=== PATIENT | male | born 1950 | race Caucasian/White ===

== ENCOUNTER 2017-03-31 15:25 | Inpatient (IN) | payer OTHER ==
[~2017-03-31] VITALS: Ht 182.9 cm; Wt 116.6 kg
[~2017-03-31 15:25] MED LIST: CARDIZEM30 MG PO; COLACE100 MG PO; DELTASONE10 MG PO; DILANTIN100 MG PO; INDERAL10 MG PO; LASIX40 MG PO; Lantus 3 ml Solostar SC; Levothroid,Synthroid PO; PACERONE200 M1 PO; VANCOMYCIN100 MG/M1 IV; VITAMIN D1000 INTUN PO
[2017-03-31 16:43] LABS: MEAN PLAT.VOLUME 10.6 uM^3 (9.0-12.4); PLATELET COUNT 375 K/uL (156-360)
[2017-03-31 16:48] LABS: HEMATOCRIT 29.8 % (38.0-50.0); MCH 29.8 PG (29.0-34.0); MCHC 32.6 G/DL (30.0-36.0); MCV 91.7 FL (86-99); RBC DIS.WIDTH-CV 13.6 % (11.8-14.6); RBC DIS.WIDTH-SD 46.2 % (39-53); RED BLOOD COUNT 3.25 M/uL (4.00-5.50); WHITE BLOOD COUNT 41.5 K/uL (4.1-10.2)
[2017-03-31 16:50] LABS: CHLORIDE 105 mEq/L (99-109); POTASSIUM 5.8 mEq/L (3.7-5.4); SODIUM 133 mEq/L (136-147)
[2017-03-31 16:53] LABS: GLUCOSE 162 mg/dL (70-99)
[2017-03-31 16:54] LABS: ANION GAP 13 MEQ/L (2-14)
[2017-03-31 16:55] LABS: TOTAL BILIRUBIN 0.8 mg/dL (0.0-1.0)
[2017-03-31 16:56] LABS: ALKALINE PHOSPHATASE 310 IU/L (3-129); GFR ESTIMATE (CALCULATED) 29 mL/min/
[2017-03-31 16:57] LABS: UREA NITROGEN (BUN) 79 mg/dL (9-23)
[2017-03-31 18:45] LABS: ERTH.SED.RATE 69 MM/HR (0-20)
[2017-03-31 22:51] LABS: POINT-OF-CARE METER ID UU13113774
[2017-04-01 00:15] VITALS: BP 162/72
[2017-04-01 04:01] VITALS: BP 133/63
[2017-04-01 06:22] LABS: POINT-OF-CARE METER ID UU13113725
[2017-04-01 07:02] LABS: HEMATOCRIT 25.9 % (38.0-50.0); MCH 29.5 PG (29.0-34.0); MCV 92.2 FL (86-99); MEAN PLAT.VOLUME 10.3 uM^3 (9.0-12.4); PLATELET COUNT 318 K/uL (156-360); RBC DIS.WIDTH-CV 13.7 % (11.8-14.6); RBC DIS.WIDTH-SD 46.7 % (39-53); RED BLOOD COUNT 2.81 M/uL (4.00-5.50); WHITE BLOOD COUNT 29.5 K/uL (4.1-10.2)
[2017-04-01 07:32] LABS: POINT-OF-CARE METER ID UU13113725
[2017-04-01 07:37] LABS: ALKALINE PHOSPHATASE 193 IU/L (3-129); ANION GAP 10 MEQ/L (2-14); CHLORIDE 107 MEQ/L (99-109); GFR ESTIMATE (CALCULATED) 32 mL/min/; GLUCOSE 76 mg/dL (70-99); POTASSIUM 4.9 MEQ/L (3.7-5.4); SAMPLE HEMOLYSIS CHECK 0; SAMPLE ICTERIC CHECK 0; SAMPLE LIPEMIA CHECK 0; SODIUM 134 MEQ/L (136-147); TOTAL BILIRUBIN 0.6 MG/DL (0.0-1.0); UREA NITROGEN (BUN) 81 mg/dL (9-23)
[2017-04-01 07:41] LABS: POINT-OF-CARE METER ID UU13113675
[2017-04-01 08:37] LABS: POINT-OF-CARE METER ID UU13113675
[2017-04-01 08:46] LABS: TROP-I INTERPRETATION NEGATIVE; TROPONIN-I 0.02 ng/mL (0.0-0.30)
[2017-04-01 09:43] LABS: POINT-OF-CARE METER ID UU13113675
[2017-04-01 10:58] VITALS: BP 126/61
[2017-04-01 11:15] LABS: POINT-OF-CARE METER ID UU13113774
[2017-04-01 12:37] LABS: POINT-OF-CARE METER ID UU13113725
[2017-04-01 15:45] LABS: POINT-OF-CARE METER ID UU13113774
[2017-04-01 20:00] VITALS: BP 134/65
[2017-04-01 21:36] LABS: POINT-OF-CARE METER ID UU13113725
[2017-04-01 23:38] VITALS: BP 103/61
[2017-04-02] VITALS (10 sets, daily range): BP systolic 116–136; BP diastolic 52–75
[2017-04-02 05:56] LABS: POINT-OF-CARE METER ID UU13113774
[2017-04-02 06:19] LABS: MEAN PLAT.VOLUME 10.4 uM^3 (9.0-12.4); PLATELET COUNT 319 K/uL (156-360)
[2017-04-02 06:20] LABS: POINT-OF-CARE METER ID UU13113725
[2017-04-02 06:21] LABS: HEMATOCRIT 23.6 % (38.0-50.0); MCH 29.6 PG (29.0-34.0); MCHC 31.4 G/DL (30.0-36.0); MCV 94.4 FL (86-99); RBC DIS.WIDTH-CV 14.2 % (11.8-14.6); RBC DIS.WIDTH-SD 48.9 % (39-53)
[2017-04-02 06:23] LABS: WHITE BLOOD COUNT 30.9 K/uL (4.1-10.2)
[2017-04-02 06:53] LABS: POINT-OF-CARE METER ID UU13113725
[2017-04-02 06:58] LABS: ABS NEUTROPHIL COUNT 27.7; ACANTHOCYTES 1+; ANISOCYTOSIS 2+; ATYPICAL LYMPHOCYTE 1.3 %; BAND NEUTROPHILS 14.6 % (0-8.0); BURR CELLS 1+; EOSINOPHIL ABS CT 0; INSTRUMENT ABS NEUTROPHIL CT 27.1 K/uL; LYMPHOCYTES 2.9 % (15.0-45.0); MACROCYTES 2+; METAMYELOCYTES 1.3 %; MYELOCYTES 0.8 %; PLAT.SUFFICIENCY ADEQUATE; POIKILOCYTOSIS 3+; SEG.NEUTROPHILS 74.9 % (46.0-76.0)
[2017-04-02 07:06] LABS: ALKALINE PHOSPHATASE 165 IU/L (3-129); ANION GAP 13 MEQ/L (2-14); CHLORIDE 105 MEQ/L (99-109); GLUCOSE 51 mg/dL (70-99); POTASSIUM 5.1 MEQ/L (3.7-5.4); SAMPLE HEMOLYSIS CHECK 0; SAMPLE ICTERIC CHECK 0; SAMPLE LIPEMIA CHECK 0; SODIUM 133 MEQ/L (136-147); UREA NITROGEN (BUN) 92 mg/dL (9-23)
[2017-04-02 07:07] LABS: GFR ESTIMATE (CALCULATED) 22 mL/min/; TOTAL BILIRUBIN 0.8 MG/DL (0.0-1.0)
[2017-04-02 11:52] LABS: POINT-OF-CARE METER ID UU13113725
[2017-04-02 13:29] LABS: BASE EXCESS -11.2 mEq/L (-3 to +3); BICARBONATE 14.7 mEq/L (22-26); CARBOXY HGB 1.6 % (0-5); METHEMOGLOBIN 2.3 % (0-1.5); PCO2 32 mm Hg (35-45); PO2 66 mm Hg (80-100)
[2017-04-02 13:30] LABS: pH 7.27 (7.35-7.45)
[2017-04-02 13:31] LABS: COMMENTS - BLOOD GASES A+C+; DEVICE RA; SITE RR; TOTAL RESP RATE 17 resp/min
[2017-04-02 16:39] LABS: POINT-OF-CARE METER ID UU13113725
[2017-04-02 21:13] LABS: POINT-OF-CARE METER ID UU13113774
[2017-04-03] VITALS (8 sets, daily range): BP systolic 114–137; BP diastolic 58–68
[2017-04-03 06:06] LABS: POINT-OF-CARE METER ID UU13113725
[2017-04-03 08:01] LABS: ADD MIUA? YES; BILIRUBIN NEGATIVE; BLOOD MODERATE; COLOR YELLOW ((YELLOW)); GLUCOSE (STRIP) NEGATIVE; KETONES NEGATIVE; LEUKOCYTES TRACE; NITRITE NEGATIVE; PROTEIN (STRIP) NEGATIVE; SPECIFIC GRAVITY 1.015 (1.000-1.030); UROBILINOGEN 0.2 MG/DL (0.2-1.0)
[2017-04-03 08:19] LABS: BACTERIA RARE /HPF; EPITHELIAL CELLS RARE /HPF; MUCUS TRACE /LPF
[2017-04-03 08:22] LABS: BASOPHIL COUNT 0.1 K/uL (0-0.1); EOSINOPHIL (%) 0.1 % (0-5); HEMATOCRIT 26.4 % (38.0-50.0); IMMATURE GRANULOCYTE (%) 3.6 % (0.0-0.7); INSTRUMENT ABS NEUTROPHIL CT 24.2 K/uL; LYMPHOCYTE COUNT 1.3 K/uL (1.0-2.8); MCH 30.2 PG (29.0-34.0); MCV 91.7 FL (86-99); MEAN PLAT.VOLUME 10.5 uM^3 (9.0-12.4); MONOCYTE (%) 3.2 % (3-12); MONOCYTE COUNT 0.9 K/uL (0-0.8); NEUTROPHIL (%) 88.3 % (45-76); NEUTROPHIL COUNT 24.2 K/uL (1.8-6.4); PLATELET COUNT 322 K/uL (156-360); RBC DIS.WIDTH-CV 14.6 % (11.8-14.6); RBC DIS.WIDTH-SD 49.3 % (39-53); RED BLOOD COUNT 2.88 M/uL (4.00-5.50); WHITE BLOOD COUNT 27.4 K/uL (4.1-10.2)
[2017-04-03 09:01] LABS: ALKALINE PHOSPHATASE 209 IU/L (3-129); ANION GAP 13 MEQ/L (2-14); CHLORIDE 102 MEQ/L (99-109); GFR ESTIMATE (CALCULATED) 17 mL/min/; GLUCOSE 217 mg/dL (70-99); POTASSIUM 5.7 MEQ/L (3.7-5.4); SAMPLE HEMOLYSIS CHECK 0; SAMPLE ICTERIC CHECK 0; SAMPLE LIPEMIA CHECK 0; SODIUM 130 MEQ/L (136-147); TOTAL BILIRUBIN 0.8 MG/DL (0.0-1.0); UREA NITROGEN (BUN) 98 mg/dL (9-23); URIC ACID 12.6 mg/dL (3.1-9.2)
[2017-04-03 09:24] LABS: UR CREATININE CONCENTRATION 149.1 MG/DL
[2017-04-03 13:04] LABS: POINT-OF-CARE METER ID UU13113725
[2017-04-03 13:46] LABS: HBSG INDEX 0.21; HPCA INDEX 0.27
[2017-04-03 13:47] LABS: ANTI-HEPATITIS A VIRUS (IGM) Nonreactive; ANTI-HEPATITIS B CORE (IGM) Nonreactive; HAV INDEX 0.17; HBC IgM INDEX 0.08
[2017-04-03 13:48] LABS: HBSG INDEX 0.23; HPCA INDEX 0.29
[2017-04-03 13:49] LABS: AHBS INDEX 0.12; ANTI-HEPATITIS B CORE (TOTAL) Nonreactive; HBCT INDEX 0.25; HEPATITIS B SURFACE ANTIBODY Nonreactive
[2017-04-03 17:16] LABS: POINT-OF-CARE METER ID UU13113774
[2017-04-03 21:41] LABS: POINT-OF-CARE METER ID UU13113774
[2017-04-04 04:08] VITALS: BP 138/68
[2017-04-04 06:50] LABS: POINT-OF-CARE METER ID UU13113725
[2017-04-04 07:20] VITALS: BP 141/68
[2017-04-04 08:52] LABS: MCHC 33.1 G/DL (30.0-36.0); MCV 90.6 FL (86-99); MEAN PLAT.VOLUME 10.5 uM^3 (9.0-12.4); PLATELET COUNT 355 K/uL (156-360); RBC DIS.WIDTH-CV 14.9 % (11.8-14.6); RBC DIS.WIDTH-SD 49.7 % (39-53); RED BLOOD COUNT 2.87 M/uL (4.00-5.50); WHITE BLOOD COUNT 24.1 K/uL (4.1-10.2)
[2017-04-04 09:19] LABS: ALKALINE PHOSPHATASE 186 IU/L (3-129); ANION GAP 12 MEQ/L (2-14); CHLORIDE 97 MEQ/L (99-109); GFR ESTIMATE (CALCULATED) 19 mL/min/; GLUCOSE 230 mg/dL (70-99); MAGNESIUM 2.3 mg/dl (1.3-2.7); POTASSIUM 4.7 MEQ/L (3.7-5.4); SAMPLE HEMOLYSIS CHECK 0; SAMPLE ICTERIC CHECK 0; SAMPLE LIPEMIA CHECK 0; SODIUM 129 MEQ/L (136-147); TOTAL BILIRUBIN 0.7 MG/DL (0.0-1.0); UREA NITROGEN (BUN) 77 mg/dL (9-23)
[2017-04-04 09:25] LABS: ABS NEUTROPHIL COUNT 23.5; BAND NEUTROPHILS 4.4 % (0-8.0); EOSINOPHIL ABS CT 0; INSTRUMENT ABS NEUTROPHIL CT 20.5 K/uL; LYMPHOCYTES 2.6 % (15.0-45.0)
[2017-04-04 11:44] LABS: POINT-OF-CARE METER ID UU13113774
[2017-04-04 11:56] VITALS: BP 148/68
[2017-04-04 13:26] LABS: INTACT PARATHYROID HORMONE 160 pg/mL (10-69)
[2017-04-04 14:03] LABS: POINT-OF-CARE METER ID UU13113675; POINT-OF-CARE USER ID ADMSLT55
[2017-04-04 14:46] VITALS: BP 107/55
[2017-04-04 16:25] VITALS: BP 136/60
[2017-04-04 16:41] LABS: POINT-OF-CARE METER ID UU13113725
[2017-04-04 19:52] VITALS: BP 126/61
[2017-04-04 21:52] LABS: POINT-OF-CARE METER ID UU13113774
[2017-04-05] VITALS (15 sets, daily range): BP systolic 119–146; BP diastolic 60–70
[2017-04-05 06:04] LABS: HEMATOCRIT 24.8 % (38.0-50.0); MCH 28.7 PG (29.0-34.0); MCHC 31.5 G/DL (30.0-36.0); MCV 91.2 FL (86-99); MEAN PLAT.VOLUME 10.1 uM^3 (9.0-12.4); PLATELET COUNT 345 K/uL (156-360); RBC DIS.WIDTH-CV 14.6 % (11.8-14.6); RBC DIS.WIDTH-SD 49.1 % (39-53); RED BLOOD COUNT 2.72 M/uL (4.00-5.50); WHITE BLOOD COUNT 18.6 K/uL (4.1-10.2)
[2017-04-05 06:27] LABS: POINT-OF-CARE METER ID UU13113774; POINT-OF-CARE USER ID 611181321
[2017-04-05 06:34] LABS: ALKALINE PHOSPHATASE 204 IU/L (3-129); ANION GAP 10 MEQ/L (2-14); CHLORIDE 98 MEQ/L (99-109); GFR ESTIMATE (CALCULATED) 21 mL/min/; GLUCOSE 249 mg/dL (70-99); MAGNESIUM 2.4 mg/dl (1.3-2.7); POTASSIUM 4.4 MEQ/L (3.7-5.4); SAMPLE HEMOLYSIS CHECK 0; SAMPLE ICTERIC CHECK 0; SAMPLE LIPEMIA CHECK 0; SODIUM 132 MEQ/L (136-147); UREA NITROGEN (BUN) 67 mg/dL (9-23)
[2017-04-05 06:37] LABS: TOTAL BILIRUBIN 0.5 MG/DL (0.0-1.0)
[2017-04-05 07:02] LABS: ABS NEUTROPHIL COUNT 16.2; ANISOCYTOSIS 1+; ATYPICAL LYMPHOCYTE 0.9 %; BAND NEUTROPHILS 3.4 % (0-8.0); EOSINOPHIL ABS CT 0.5; EOSINOPHILS 2.6 % (0-5.0); LYMPHOCYTES 4.3 % (15.0-45.0); MACROCYTES 1+; METAMYELOCYTES 5.2 %; OVALOCYTES 1+; PLAT.SUFFICIENCY INCREASED; POLYCHROMASIA 1+; SEG.NEUTROPHILS 83.6 % (46.0-76.0); SPHEROCYTES 1+
[2017-04-05 11:48] LABS: POINT-OF-CARE METER ID UU13113725
[2017-04-05 16:39] LABS: POINT-OF-CARE METER ID UU13113725
[2017-04-05] MEDS ORDERED: OXYCODONE HCL5 MG PO (17:50)
[2017-04-05] MEDS ORDERED: NORVASC10 MG PO (17:53)
[2017-04-05] MEDS ORDERED: LANTUS 10100 UNITS/ SC (17:53)
[2017-04-05] MEDS ORDERED: AMLODIPINE BESY10 MG PO (17:54)
[2017-04-05] MEDS ORDERED: CLONIDINE HCL0.1 MG PO (17:55)
[2017-04-05] MEDS ORDERED: METFORMIN HCL1000 MG PO (17:55)
[2017-04-05] MEDS ORDERED: MELOXICAM15 MG PO (17:56)
[2017-04-05] MEDS ORDERED: LOSARTAN POTASS50 MG PO (17:56)
[2017-04-05 21:32] LABS: POINT-OF-CARE METER ID UU13113774
[2017-04-06 00:09] VITALS: BP 138/68
[2017-04-06 05:56] LABS: POINT-OF-CARE METER ID UU13113774
[2017-04-06 06:00] LABS: HEMATOCRIT 29.2 % (38.0-50.0); MCH 30.1 PG (29.0-34.0); MCHC 32.9 G/DL (30.0-36.0); MCV 91.5 FL (86-99); MEAN PLAT.VOLUME 10.1 uM^3 (9.0-12.4); RBC DIS.WIDTH-CV 14.5 % (11.8-14.6); RBC DIS.WIDTH-SD 48.8 % (39-53); RED BLOOD COUNT 3.19 M/uL (4.00-5.50)
[2017-04-06 06:25] LABS: POINT-OF-CARE METER ID UU13113774
[2017-04-06 06:37] LABS: ALKALINE PHOSPHATASE 200 IU/L (3-129); ANION GAP 12 MEQ/L (2-14); CHLORIDE 100 MEQ/L (99-109); GFR ESTIMATE (CALCULATED) 18 mL/min/; POTASSIUM 4.7 MEQ/L (3.7-5.4); SAMPLE HEMOLYSIS CHECK 0; SAMPLE ICTERIC CHECK 0; SAMPLE LIPEMIA CHECK 0; SODIUM 135 MEQ/L (136-147); TOTAL BILIRUBIN 0.5 MG/DL (0.0-1.0); UREA NITROGEN (BUN) 81 mg/dL (9-23)
[2017-04-06 06:38] LABS: GLUCOSE 53 mg/dL (70-99)
[2017-04-06 07:19] LABS: ATYPICAL LYMPHOCYTE 0.9 %; BAND NEUTROPHILS 2.7 % (0-8.0); EOSINOPHILS 0.9 % (0-5.0); LYMPHOCYTES 5.4 % (15.0-45.0); METAMYELOCYTES 2.7 %; MYELOCYTES 5.4 %; SEG.NEUTROPHILS 74.1 % (46.0-76.0)
[2017-04-06 07:20] LABS: ANISOCYTOSIS 1+; MACROCYTES 1+; PLAT.SUFFICIENCY INCREASED
[2017-04-06 07:22] LABS: POINT-OF-CARE METER ID UU13113725
[2017-04-06 07:27] LABS: ABS NEUTROPHIL COUNT 12.6; EOSINOPHIL ABS CT 0.1; INSTRUMENT ABS NEUTROPHIL CT 11.8 K/uL; PLATELET CLUMPS PRESENT - PLATELET COUNTS APPEARS DECREASED; POIKILOCYTOSIS 1+
[2017-04-06 08:14] VITALS: BP 139/63
[2017-04-06 11:26] VITALS: BP 176/74
[2017-04-06 11:35] LABS: POINT-OF-CARE METER ID UU13113725
[2017-04-06 16:54] LABS: POINT-OF-CARE METER ID UU13113725
[2017-04-06 17:04] VITALS: BP 170/81
[2017-04-06 21:27] LABS: POINT-OF-CARE METER ID UU13113725
[2017-04-07] VITALS (8 sets, daily range): BP systolic 132–180; BP diastolic 67–84
[2017-04-07 05:36] LABS: HEMATOCRIT 29.5 % (38.0-50.0); MCHC 31.5 G/DL (30.0-36.0); MCV 91.9 FL (86-99); MEAN PLAT.VOLUME 9.6 uM^3 (9.0-12.4); PLATELET COUNT 340 K/uL (156-360); RBC DIS.WIDTH-CV 14.1 % (11.8-14.6); RBC DIS.WIDTH-SD 47.2 % (39-53); RED BLOOD COUNT 3.21 M/uL (4.00-5.50); WHITE BLOOD COUNT 13.6 K/uL (4.1-10.2)
[2017-04-07 06:18] LABS: ANION GAP 8 MEQ/L (2-14); CHLORIDE 101 MEQ/L (99-109); POTASSIUM 4.2 MEQ/L (3.7-5.4); SAMPLE HEMOLYSIS CHECK 0; SAMPLE ICTERIC CHECK 0; SAMPLE LIPEMIA CHECK 0; SODIUM 136 MEQ/L (136-147); UREA NITROGEN (BUN) 47 mg/dL (9-23)
[2017-04-07 06:19] LABS: GFR ESTIMATE (CALCULATED) 25 mL/min/; GLUCOSE 36 mg/dL (70-99)
[2017-04-07 06:38] LABS: POINT-OF-CARE METER ID UU13113725
[2017-04-07 07:10] LABS: ABS NEUTROPHIL COUNT 11.2; ATYPICAL LYMPHOCYTE 1.8 %; BAND NEUTROPHILS 2.7 % (0-8.0); EOSINOPHIL ABS CT 0; INSTRUMENT ABS NEUTROPHIL CT 9.1 K/uL; LYMPHOCYTES 10.6 % (15.0-45.0); MYELOCYTES 1.8 %; PLAT.SUFFICIENCY ADEQUATE; SEG.NEUTROPHILS 79.6 % (46.0-76.0); SMUDGE CELLS 8.8
[2017-04-07 09:00] LABS: POINT-OF-CARE METER ID UU13113725
[2017-04-07 11:20] LABS: POINT-OF-CARE METER ID UU13113725
[2017-04-07 16:36] LABS: POINT-OF-CARE METER ID UU13113725
[2017-04-07 22:44] LABS: POINT-OF-CARE METER ID UU13113725
[2017-04-08 04:04] LABS: POINT-OF-CARE METER ID UU13113774
[2017-04-08 04:18] LABS: POINT-OF-CARE METER ID UU13113774
[2017-04-08 05:08] LABS: POINT-OF-CARE METER ID UU13113774
[2017-04-08 08:09] LABS: HEMATOCRIT 29.2 % (38.0-50.0); MCH 30.1 PG (29.0-34.0); MCHC 32.2 G/DL (30.0-36.0); MCV 93.6 FL (86-99); MEAN PLAT.VOLUME 10.1 uM^3 (9.0-12.4); PLATELET COUNT 348 K/uL (156-360); RBC DIS.WIDTH-CV 14.1 % (11.8-14.6); RBC DIS.WIDTH-SD 47.4 % (39-53); RED BLOOD COUNT 3.12 M/uL (4.00-5.50); WHITE BLOOD COUNT 11.1 K/uL (4.1-10.2)
[2017-04-08 08:20] LABS: ANION GAP 6 MEQ/L (2-14); CHLORIDE 103 MEQ/L (99-109); POTASSIUM 4.7 MEQ/L (3.7-5.4); SAMPLE HEMOLYSIS CHECK 0; SAMPLE ICTERIC CHECK 0; SAMPLE LIPEMIA CHECK 0; SODIUM 136 MEQ/L (136-147)
[2017-04-08 08:28] LABS: GFR ESTIMATE (CALCULATED) 30 mL/min/; UREA NITROGEN (BUN) 45 mg/dL (9-23)
[2017-04-08 08:46] LABS: GLUCOSE 225 mg/dL (70-99)
[2017-04-08 08:49] LABS: ABS NEUTROPHIL COUNT 8.8; ANISOCYTOSIS 1+; BAND NEUTROPHILS 1.7 % (0-8.0); BASOPHILS 0.9 %; EOSINOPHIL ABS CT 0; INSTRUMENT ABS NEUTROPHIL CT 7.7 K/uL; LYMPHOCYTES 11.2 % (15.0-45.0); MACROCYTES 1+; PLAT.SUFFICIENCY ADEQUATE; POLYCHROMASIA 1+; SEG.NEUTROPHILS 77.6 % (46.0-76.0)
[2017-04-08 12:09] VITALS: BP 129/73
[2017-04-08 12:20] LABS: POINT-OF-CARE METER ID UU13113774
[2017-04-08 16:05] VITALS: BP 167/75
[2017-04-08 16:52] LABS: POINT-OF-CARE METER ID UU13113725
[2017-04-08 21:33] LABS: POINT-OF-CARE METER ID UU13113774
[2017-04-08 23:23] VITALS: BP 187/61
[2017-04-09 02:30] LABS: POINT-OF-CARE METER ID UU13113774
[2017-04-09 05:51] LABS: POINT-OF-CARE METER ID UU13113725
[2017-04-09 05:59] LABS: HEMATOCRIT 28.7 % (38.0-50.0); MCH 30.1 PG (29.0-34.0); MCHC 32.4 G/DL (30.0-36.0); MCV 92.9 FL (86-99); MEAN PLAT.VOLUME 9.7 uM^3 (9.0-12.4); PLATELET COUNT 356 K/uL (156-360); RBC DIS.WIDTH-CV 14.3 % (11.8-14.6); RBC DIS.WIDTH-SD 47.6 % (39-53); RED BLOOD COUNT 3.09 M/uL (4.00-5.50); WHITE BLOOD COUNT 11.7 K/uL (4.1-10.2)
[2017-04-09 06:38] LABS: ANION GAP 7 MEQ/L (2-14); CHLORIDE 100 MEQ/L (99-109); GLUCOSE 245 mg/dL (70-99); POTASSIUM 4.5 MEQ/L (3.7-5.4); SAMPLE HEMOLYSIS CHECK 0; SAMPLE ICTERIC CHECK 0; SAMPLE LIPEMIA CHECK 0; SODIUM 135 MEQ/L (136-147); UREA NITROGEN (BUN) 32 mg/dL (9-23)
[2017-04-09 06:41] LABS: GFR ESTIMATE (CALCULATED) 40 mL/min/; MAGNESIUM 1.8 mg/dl (1.3-2.7)
[2017-04-09 06:59] LABS: ABS NEUTROPHIL COUNT 8.6; ANISOCYTOSIS 1+; ATYPICAL LYMPHOCYTE 0.9 %; BASOPHILS 1.8 %; EOSINOPHIL ABS CT 0.1; EOSINOPHILS 0.9 % (0-5.0); INSTRUMENT ABS NEUTROPHIL CT 7.6 K/uL; LYMPHOCYTES 13.3 % (15.0-45.0); METAMYELOCYTES 1.8 %; MYELOCYTES 3.5 %; PLAT.SUFFICIENCY ADEQUATE; SEG.NEUTROPHILS 73.4 % (46.0-76.0)
[2017-04-09 07:47] VITALS: BP 160/58; BP 170/58
[2017-04-09 11:47] LABS: POINT-OF-CARE METER ID UU13113774
[2017-04-09 15:14] VITALS: BP 109/57; BP 149/57
[2017-04-09 15:47] LABS: POINT-OF-CARE METER ID UU13113774
[2017-04-09 21:46] LABS: POINT-OF-CARE METER ID UU13113774
[2017-04-10 00:24] VITALS: BP 160/70
[2017-04-10 05:41] LABS: HEMATOCRIT 29.5 % (38.0-50.0); MCH 30.2 PG (29.0-34.0); MCHC 32.2 G/DL (30.0-36.0); MCV 93.7 FL (86-99); MEAN PLAT.VOLUME 9.7 uM^3 (9.0-12.4); PLATELET COUNT 352 K/uL (156-360); RBC DIS.WIDTH-CV 14.4 % (11.8-14.6); RED BLOOD COUNT 3.15 M/uL (4.00-5.50)
[2017-04-10 06:04] LABS: ANION GAP 6 MEQ/L (2-14); CHLORIDE 104 MEQ/L (99-109); GFR ESTIMATE (CALCULATED) 43 mL/min/; GLUCOSE 138 mg/dL (70-99); MAGNESIUM 1.6 mg/dl (1.3-2.7); POTASSIUM 4.5 MEQ/L (3.7-5.4); SAMPLE HEMOLYSIS CHECK 0; SAMPLE ICTERIC CHECK 0; SAMPLE LIPEMIA CHECK 0; SODIUM 138 MEQ/L (136-147); UREA NITROGEN (BUN) 35 mg/dL (9-23)
[2017-04-10 06:30] LABS: POINT-OF-CARE METER ID UU13113774
[2017-04-10 07:10] LABS: ABS NEUTROPHIL COUNT 8.8; ANISOCYTOSIS 1+; BAND NEUTROPHILS 1.7 % (0-8.0); EOSINOPHIL ABS CT 0.1; EOSINOPHILS 0.9 % (0-5.0); INSTRUMENT ABS NEUTROPHIL CT 7.9 K/uL; LYMPHOCYTES 13.2 % (15.0-45.0); MACROCYTES 1+; MYELOCYTES 5.3 %; PLAT.SUFFICIENCY ADEQUATE; SEG.NEUTROPHILS 71.9 % (46.0-76.0); SMUDGE CELLS 13.2
[2017-04-10 07:30] VITALS: BP 164/77
[2017-04-10 11:44] LABS: POINT-OF-CARE METER ID UU13113774
[2017-04-10 15:00] VITALS: BP 172/77
[2017-04-10 16:59] LABS: POINT-OF-CARE METER ID UU13113774
[2017-04-10 22:00] LABS: POINT-OF-CARE METER ID UU13113725
[2017-04-10 23:53] VITALS: BP 133/68
[2017-04-11 05:03] VITALS: BP 158/71
[2017-04-11 05:56] LABS: HEMATOCRIT 29.3 % (38.0-50.0); MCH 29.5 PG (29.0-34.0); MCHC 31.4 G/DL (30.0-36.0); MCV 93.9 FL (86-99); MEAN PLAT.VOLUME 9.8 uM^3 (9.0-12.4); PLATELET COUNT 375 K/uL (156-360); RBC DIS.WIDTH-CV 14.6 % (11.8-14.6); RBC DIS.WIDTH-SD 47.8 % (39-53); RED BLOOD COUNT 3.12 M/uL (4.00-5.50); WHITE BLOOD COUNT 11.1 K/uL (4.1-10.2)
[2017-04-11 06:29] LABS: ANION GAP 5 MEQ/L (2-14); CHLORIDE 104 MEQ/L (99-109); GFR ESTIMATE (CALCULATED) 50 mL/min/; GLUCOSE 109 mg/dL (70-99); POTASSIUM 4.1 MEQ/L (3.7-5.4); SAMPLE HEMOLYSIS CHECK 0; SAMPLE ICTERIC CHECK 0; SAMPLE LIPEMIA CHECK 0; SODIUM 138 MEQ/L (136-147); UREA NITROGEN (BUN) 33 mg/dL (9-23)
[2017-04-11 06:47] LABS: POINT-OF-CARE METER ID UU13113725
[2017-04-11 07:24] LABS: ABS NEUTROPHIL COUNT 8.5; ATYPICAL LYMPHOCYTE 0.9 %; BASOPHILS 0.9 %; EOSINOPHIL ABS CT 0.2; EOSINOPHILS 1.7 % (0-5.0); INSTRUMENT ABS NEUTROPHIL CT 7.6 K/uL; LYMPHOCYTES 15.8 % (15.0-45.0); METAMYELOCYTES 0.9 %; NUCLEATED RBC'S 0.9; PLAT.SUFFICIENCY INCREASED; SEG.NEUTROPHILS 76.3 % (46.0-76.0)
[2017-04-11 07:48] VITALS: BP 190/55
[2017-04-11 12:06] LABS: POINT-OF-CARE METER ID UU13113774
[2017-04-11 16:18] LABS: POINT-OF-CARE METER ID UU13113774
[2017-04-11 16:49] VITALS: BP 167/78
[2017-04-11 22:19] LABS: POINT-OF-CARE METER ID UU13113725
[2017-04-11 23:52] VITALS: BP 161/75
[2017-04-12 06:35] LABS: POINT-OF-CARE METER ID UU13113774
[2017-04-12 07:37] LABS: POINT-OF-CARE METER ID UU13113774
[2017-04-12 08:12] VITALS: BP 151/68
[2017-04-12 11:36] LABS: POINT-OF-CARE METER ID UU13113774
[2017-04-12 16:00] VITALS: BP 168/70
[2017-04-12 16:25] LABS: POINT-OF-CARE METER ID UU13113774
[2017-04-12 21:56] LABS: POINT-OF-CARE METER ID UU13113725
[2017-04-13 00:17] VITALS: BP 160/75
[2017-04-13 06:24] LABS: POINT-OF-CARE METER ID UU13113725
[2017-04-13 06:58] LABS: ANION GAP 7 MEQ/L (2-14); CHLORIDE 104 MEQ/L (99-109); GFR ESTIMATE (CALCULATED) 46 mL/min/; GLUCOSE 85 mg/dL (70-99); IRON 45 MCG/DL (35-150); POTASSIUM 4.4 MEQ/L (3.7-5.4); SAMPLE HEMOLYSIS CHECK 0; SAMPLE ICTERIC CHECK 0; SAMPLE LIPEMIA CHECK 0; SODIUM 139 MEQ/L (136-147); UREA NITROGEN (BUN) 32 mg/dL (9-23)
[2017-04-13 07:29] VITALS: BP 129/60
[2017-04-13 11:23] LABS: POINT-OF-CARE METER ID UU13113774
[2017-04-13] MEDS ORDERED: HEPARIN SO5000 UNIT4 SC (14:17)
[2017-04-13] MEDS ORDERED: NOVOLOG PE100 UNITS/ SC (14:19)
[2017-04-13] MEDS ORDERED: LEVEMIR100 UNIT/2 SC ×2 (14:20)
[2017-04-13] MEDS ORDERED: HECTOROL4 MCG/2 M1 IV (14:22)
[2017-04-13] MEDS ORDERED: APRESOLINE50 MG PO (14:22)
[2017-04-13] MEDS ORDERED: ARANESP100 MCG/0. IV (14:22)
[2017-04-13] MEDS ORDERED: FAMOTIDINE20 MG PO (14:22)
[2017-04-13] MEDS ORDERED: PRAVASTATIN SOD40 MG PO (14:22)
[2017-04-13] MEDS ORDERED: SERTRALINE HCL50 MG PO (14:22)
[2017-04-13] MEDS ORDERED: OXYCODONE HCL5 MG PO (14:22)
== END 2017-04-13 14:45 | disposition designated cancer center or children's hospital (05) | DRG 853 ==
LOC: EME 15:25 → 5EAST 17:20 → EDOF 17:20 → ENRESERV 17:45 → 5EAST 22:21
PROVIDERS: Emergency Medicine; Internal Medicine; Internal Medicine Nephrology; Surgery
DX: A40.1 Sepsis due to streptococcus, group B (principal); N17.0 Acute kidney failure with tubular necrosis; E10.52 Type 1 diabetes mellitus with diabetic peripheral angiopathy with gangrene; E10.22 Type 1 diabetes mellitus with diabetic chronic kidney disease; M72.6 Necrotizing fasciitis; I12.9 Hypertensive chronic kidney disease with stage 1 through stage 4 chronic kidney disease, or unspecified chronic kidney disease; R65.20 Severe sepsis without septic shock; E66.01 Morbid (severe) obesity due to excess calories; N28.1 Cyst of kidney, acquired; E10.319 Type 1 diabetes mellitus with unspecified diabetic retinopathy without macular edema; E87.1 Hypo-osmolality and hyponatremia; E87.5 Hyperkalemia; E10.65 Type 1 diabetes mellitus with hyperglycemia; E10.69 Type 1 diabetes mellitus with other specified complication; E87.2 Acidosis; F32.9 Major depressive disorder, single episode, unspecified; H54.8 Legal blindness, as defined in USA; N18.9 Chronic kidney disease, unspecified; G89.29 Other chronic pain; N18.3 Chronic kidney disease, stage 3 (moderate); M51.9 Unspecified thoracic, thoracolumbar and lumbosacral intervertebral disc disorder; M19.90 Unspecified osteoarthritis, unspecified site; M54.5 Low back pain; E78.5 Hyperlipidemia, unspecified; M86.9 Osteomyelitis, unspecified; I87.8 Other specified disorders of veins; L03.115 Cellulitis of right lower limb; D64.9 Anemia, unspecified; L97.429 Non-pressure chronic ulcer of left heel and midfoot with unspecified severity; I50.9 Heart failure, unspecified; E10.42 Type 1 diabetes mellitus with diabetic polyneuropathy; Z79.4 Long term (current) use of insulin; Z91.14 Patient's other noncompliance with medication regimen; Z68.34 Body mass index [BMI] 34.0-34.9, adult; R56.9 Unspecified convulsions; Z91.19 Patient's noncompliance with other medical treatment and regimen; Z87.891 Personal history of nicotine dependence; E83.51 Hypocalcemia; Q75.2 Hypertelorism; E10.649 Type 1 diabetes mellitus with hypoglycemia without coma
CPT/HCPCS: 36600; 71010; 73630; 76770; 80048; 80053; 80069; 80074; 81003; 82010; 82306; 82330; 82570; 82803; 82948; 83540; 83605; 83735; 83970; 84100; 84156; 84466; 84484; 84550; 85025; 85027; 85651; 86704; 86706; 86803; 86850; 86900; 86901; 86920; 87040; 87070; 87075; 87076; 87077; 87147; 87185; 87186; 87205; 87340; 87801; 88307; 93005; 94640; 94640 76; 94760; 94799; 97530 GO; 97530 GP; 99202; 99281; 99285; C1788; J0295; J0330; J0881; J1170; J1270; J1644; J1815; J1940; J2250; J2405; J2543; J3010; J3370; J7030; J7050; J7070; P9016